=== PATIENT | male | born 1955 | race Caucasian/White ===

== ENCOUNTER 2017-10-07 21:15 | Emergency (ER) | payer OTHER, MEDICAID ==
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
[2017-10-07 21:43] LABS: BASO % 0.4 % (0-6); EOS % 2.8 % (0-6); HEMATOCRIT 40.3 % (42.0-52.0); HEMOGLOBIN 13.6 gm/dl (14.0-18.0); LYMPH % 30.6 % (16-45); MEAN CELL VOLUME 91.8 fl (81-97); MEAN CORPUSCULAR HEMOGLOBIN 30.9 pg (27-33); MEAN CORPUSCULAR HGB CONC 33.7 g/dl (32-36); MEAN PLATELET VOLUME 8.7 fl (7.4-10.4); MONO % 7.2 % (0-9); PLATELET COUNT 264 K/uL (130-400); RED BLOOD COUNT 4.39 M/uL (4.40-5.70); RED CELL DISTRIBUTION WIDTH 12.6 % (11.5-14.5); WHITE BLOOD COUNT W/O DIFF 7.9 K/uL (4.2-12.2)
[2017-10-07 21:53] LABS: BLOOD UREA NITROGEN 8 mg/dL (8-23); CREATININE 0.7 mg/dL (0.7-1.2); EST GLOMERULAR FILTRATION RATE > 60 mL/min
[2017-10-07 21:54] LABS: TOTAL PROTEIN 6.8 g/dL (6.6-8.7)
[2017-10-07 21:56] LABS: GLUCOSE,RANDOM 100 mg/dL (74-109)
[2017-10-07 21:58] LABS: ALB/GLOB RATIO 2.1 (1.1-1.8); ALBUMIN 4.6 g/dL (4.0-5.0); ALKALINE PHOSPHATASE 74 U/L (40-129); ALT/SGPT 20 U/L (<41); AST/SGOT 28 U/L (10.0-50.0)
[2017-10-07 21:59] LABS: CREATINE PHOSPHOKINASE 175 U/L (39-308)
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
== END 2017-10-07 23:08 | disposition home or self-care (01) ==
LOC: ER 21:15
DX: Z04.1 Encounter for examination and observation following transport accident (principal); J44.9 Chronic obstructive pulmonary disease, unspecified; F17.210 Nicotine dependence, cigarettes, uncomplicated; G40.909 Epilepsy, unspecified, not intractable, without status epilepticus; Z86.19 Personal history of other infectious and parasitic diseases; V89.0XXA Person injured in unspecified motor-vehicle accident, nontraffic, initial encounter; Y92.9 Unspecified place or not applicable; Y99.9 Unspecified external cause status; V47.0XXA Car driver injured in collision with fixed or stationary object in nontraffic accident, initial encounter; I67.82 Cerebral ischemia
CPT/HCPCS: 70450; 70486; 71260; 72125; 80053; 82550; 83605; 85025; 99284